=== PATIENT | female | born 1955 | race Caucasian/White ===

== ENCOUNTER 2021-07-04 11:16 | Outpatient (CLI) | payer MEDICARE, OTHER ==
[2021-07-04 12:42] LABS: Hemoglobin 11.4 g/dL (12.0-15.5); Mean Corpuscular HGB CONC 32.1 g/dL (32.0-36.0); Mean Corpuscular Hemoglobin 28.7 pg (27.0-33.0); Mean Corpuscular Volume 89.4 fl (81.6-98.3); Platelet Count 193 10x3/uL (150-450); RBC Distribution Width 13.9 % (11.5-14.5); Red Blood Cell (RBC) Count 3.97 10x6/uL (3.90-5.03); White Blood Cell (WBC) Count 5.2 10x3/uL (3.5-10.5)
[2021-07-04 12:53] LABS: Anion Gap 15 mmol/L (10-20); BUN (Urea Nitrogen) 15 mg/dL (9.8-20.1); Calc. Creatinine Clearance 0 mL/min (70-130); Calcium 9.1 mg/dL (7.8-10.44); Carbon Dioxide 25 mmol/L (23-31); Chloride 105 mmol/L (98-107); Glucose 134 mg/dL (80-115); Potassium 4.6 mmol/L (3.5-5.1); Sodium 140 mmol/L (136-145)
== END 2021-07-04 11:17 | disposition home or self-care (01) ==
LOC: CSHLAB 11:16
PROVIDERS: ATTEND Otolaryngology Otolaryngic Allergy
DX: Z01.818 Encounter for other preprocedural examination (principal)
CPT/HCPCS: 80048; 85027; 93005; 93010

== ENCOUNTER 2021-07-10 05:50 | Day surgery (SDC) | payer MEDICARE, OTHER ==
[2021-07-06 14:34] VITALS: BMI 40.3
[2021-07-10] MEDS ORDERED: Lidocaine 1% MPF 2 ML VIAL ONE (06:21)
[2021-07-10] MEDS ORDERED: Lidocaine 4% Topical Sol 50 ML BOT ONE (06:31)
[2021-07-10] MEDS ORDERED: EPINEPHrine 1 MG/ML AMP ONE (06:38)
[2021-07-10] MEDS ORDERED: Lidocaine 1% PF 5 ML VIAL ONE (06:54)
[2021-07-10] MEDS ORDERED: PROPOFOL 20 ML ONE (06:54)
[2021-07-10] MEDS ORDERED: Fentanyl 100 MCG/2 ML VIAL ONE ×2 (06:54→08:04)
[2021-07-10] MEDS ORDERED: SUGAMMADEX SODIUM 200 MG/2 ML VIAL ONE (07:07)
[2021-07-10] MEDS ORDERED: PROPOFOL 40 ML ONE (07:22)
[2021-07-10] MEDS ORDERED: Esmolol 100 MG/10 ML VIAL ONE (07:48)
[2021-07-10] MEDS ORDERED: Rocuronium Bromide 10 MG/ML (10ML VIAL) ONE (08:51)
[2021-07-10] MEDS ORDERED: Labetalol HCl 100 MG/20 ML VIAL ONE (08:51)
== END 2021-07-10 10:35 | disposition home or self-care (01) ==
LOC: CSHSDC 05:50
PROVIDERS: ATTEND Otolaryngology Otolaryngic Allergy
DX: J38.7 Other diseases of larynx (principal); J38.2 Nodules of vocal cords; R49.0 Dysphonia; Z79.899 Other long term (current) drug therapy; G47.30 Sleep apnea, unspecified; E11.9 Type 2 diabetes mellitus without complications
CPT/HCPCS: 36416; 88305; J0171; J2704; J3010